=== PATIENT | male | born 1955 | race Caucasian/White ===

== ENCOUNTER 2020-12-08 15:24 | Outpatient (REF) | payer MEDICARE, OTHER, SELFPAY ==
[2020-12-08 17:58] LABS: Glucose Urine UA NEG (NEG); Leukocyte Esterase Urine 1+ (NEG); Nitrite Urine NEG (NEG); Specific Gravity - Urine >= 1.030 (1.005-1.025); Urine Blood 3+ (NEG); Urine Ketones 5 MG/DL (NEG); Urine Protein 2+ MG/DL (NEG-TRACE)
[2020-12-08 18:02] LABS: Appearance Urine HAZY; Color Urine YELLOW
[2020-12-08 18:11] LABS: Bacteria Urine 1+ /LPF
== END 2020-12-08 15:25 | disposition home or self-care (01) ==
LOC: HO.LAB 15:24
PROVIDERS: PCP Internal Medicine; Visit Provider Urology
DX: N39.0 Urinary tract infection, site not specified (principal)
CPT/HCPCS: 81001; 87086

== ENCOUNTER → 2021-01-05 15:36 | Outpatient (BNVA) | payer MEDICARE, OTHER, SELFPAY | PROVIDERS: PCP Internal Medicine; Visit Provider Urology | DX: Z13.89 Encounter for screening for other disorder (principal) | CPT/HCPCS: 99212 ==

== ENCOUNTER → 2021-07-14 15:15 | Outpatient (BNVA) | payer MEDICARE, SELFPAY | PROVIDERS: PCP Internal Medicine; Visit Provider Urology ==

== ENCOUNTER 2022-05-05 13:13 | Emergency (ER) | payer MEDICARE, OTHER, SELFPAY ==
--- NOTE | ~2022-05-05 | XR_ITS ---
EXAMINATION: XR KNEE, RIGHT CLINICAL INFORMATION: Right knee pain. COMPARISON: None TECHNIQUE: Four views of the right knee. FINDINGS: Mild tricompartmental degenerative joint changes are seen. There is no acute fracture or dislocation. Trace suprapatellar joint effusion. The soft tissues are unremarkable. XR/XR knee RT 4V IMPRESSION: Mild tricompartmental degenerative joint changes and trace suprapatellar joint effusion. No acute abnormality.
--- NOTE | ~2022-05-05 | US_ITS ---
EXAMINATION: US VENOUS ULTRASOUND WITH DOPPLER LOWER EXTREMITY, RIGHT CLINICAL INFORMATION: Edema COMPARISON: None TECHNIQUE: Ultrasound of the deep veins is performed from the hip to the calf with compression sonography and color and pulse Doppler assessment. Spectral analysis with color-flow imaging is performed. FINDINGS: There is normal venous compression and respiratory variation and augmented flow. The visualized common femoral vein, superficial femoral vein, profunda femoral vein, popliteal vein, and the trifurcation region shows no evidence of deep venous thrombosis. There is no significant popliteal fossa cyst. If the patient's symptoms persist, followup ultrasound in 5 days 7 days might be of value to exclude proximal propagation from a non-visualized calf vein. US/US venous duplex LE RT IMPRESSION: No DVT demonstrated in the right lower extremity.
[2022-05-05 13:20] VITALS: BP 149/70; PULSE 87; RESP 18; TEMP 36.8; O2SAT 98; BMI 26.6
[2022-05-05 14:04] LABS: MANUAL DIFF FLAG NO
--- NOTE | 2022-05-05 14:07 | ED.GENADULT ---
HPI - General Adult General Chief complaint: General Medical Stated complaint: Possible sepsis Time Seen by Provider: 05/05/22 14:06 Source: patient and old records reviewed History of Present Illness HPI narrative: Patient states for approximately 2 weeks he has had muscle aches and joint pains. No fevers or shaking chills. Patient was sent to [facility] lab this morning, and had laboratory studies done including CRP and sed rate, chemistry and CBC, urinalysis. Laboratory studies were abnormal with an elevated CRP and sed rate, and the patient was called by his primary care doctor told to go to the emergency room to be evaluated. The patient states he has noted his right knee to be somewhat swollen and painful, but denies any redness or warmth. Onset (ago): week(s) (2) Location: upper extremity and lower extremity Radiation: non-radiation Severity: mild Quality: aching and dull Pain Consistency: constant Relieving factors: none Exacerbating factors: none Related Data Previous Rx's Medication Instructions Recorded alfuzosin 10 mg tablet,extended 10 mg PO DAILY 90 days #90 tabs 02/23/21 release 24 hr doxycycline hyclate 100 mg capsule 100 mg PO BID 14 days #28 caps 05/05/22 Allergies Allergy/AdvReac Type Severity Reaction Status Date / Time No Known Allergies Allergy Mild NONE Verified 01/05/21 15:45 Review of Systems Review of Systems: Yes all other systems are reviewed and are negative Constitutional: Constitutional: Denies chills, Denies fever(s) and Denies headache(s) Eyes: Eyes: Denies blurry vision and Denies change in vision ENT: Denies dizziness and Denies headache(s) Cardiovascular: Cardiovascular: Denies chest pain, Denies syncope, Denies rapid heart rate and Denies dyspnea Respiratory: Respiratory: Denies cough, Denies dyspnea and Denies wheezing Gastrointestinal: Gastrointestinal: Denies diarrhea and Denies vomiting Genitourinary: Genitourinary: Denies difficulty urinating and Denies urinary urgency Musculoskeletal: Musculoskeletal: Reports myalgias, Reports arthralgias and Reports joint swelling Neurologic: Denies Abnormal speech present, Denies dizziness, Denies syncope and Denies headache(s) Allergic/Immunologic: Allergic/Immunologic: Denies wheezing [facility] Past Medical History Attestation statement: The following information was validated with the patient. [facility] Narrative: Patient does have a history of BPH and recurrent UTI Medical History (Updated 05/05/22 @ 18:56 by Jg Mcgovern MD) Erectile dysfunction Social History Social History Advance Directives: No Advance Directives Information Provided: Yes Physical Exam ED Vital Signs: Vital Signs - 24 hr 05/05/22 13:20 Temperature 98.3 F Pulse Rate 87 Respiratory Rate 18 Blood Pressure 149/70 H Pulse Oximetry 98 Oxygen Delivery Method Room Air BMI result Body Mass Index 26.6 Vital signs are stable and with mild systolic hypertension Const General: cooperative, healthy appearing and comfortable Nutritional Appearance: average body habitus Orientation/consciousness: patient oriented x3 HENMT Head: Yes normocephalic and Yes atraumatic Ears: hearing grossly normal bilaterally and external ears normal General nose exam: Normal external nose present Face and sinus: Yes normal facial exam Mouth: Normal oral and palatal mucosa present and moist mucous membranes Eyes Sclerae: sclerae normal Corneas: corneas normal Pupils: Equal, round and reactive pupils present EOM: EOMs intact bilaterally Neck Neck: Yes normal visual inspection, Yes full ROM and Yes no meningeal signs Resp Effort & Inspection: normal respiratory effort, no cough and no respiratory distress Auscultation: clear to auscultation bilaterally Cardio Rate: regular rate Rhythm: regular rhythm GI Inspection: No distended and No obesity General: Yes no CVA tenderness Back/Spine/Pelvis Back: no CVA tenderness Cervical Spine: normal cervical lordosis and cervical ROM normal Skin General skin exam: no erythema, no mottling and no pallor Neuro General: patient oriented x3 and no meningeal signs Cranial nerves: Yes CN's II-XII intact bilaterally and Yes Equal, round and reactive pupils present Cognition (Neuro): normal cognition Speech: No Abnormal speech present Gait exam (Neuro): Normal gait present Course Reevaluation(s) Reevaluation #1: Patient resting comfortably. Leg and knee examined at this time which displays swelling of the right lower leg from the knee down to the foot and ankle. There is no tenderness on palpation of the ankle or knee, no ligamentous laxity, and no rash or warmth. Time: 15:50 Procedures Joint Aspiration/Injection Joint Asp./Inject. 1: Time Out Performed: Yes Side of body: right Joint Aspirated: knee Ultrasound Guidance: No Skin Prep: Povidone-Iodine1% Local Anesthetic: lidocaine 1% Needle Size Used: 20G Fluid Obtained: bloody Total fluid obtained (mL): 2 Patient Tolerated Procedure: well Complications: none Medical Decision Making MDM Narrative Medical decision making narrative: 68-year-old male presents to the ED with several weeks of vague muscular complaints and joint pain. Seen by his primary care doctor yesterday and had laboratory studies performed at that time. Additional labs done here tonight show a mild anemia and lymphopenia. The patient reports that his Lyme test yesterday was negative. Repeat Lyme test today is pending although other tick-borne illnesses still need to be excluded. An attempt was made at arthrocentesis of the right knee, only 1 cc of fluid was obtained. This was sent to the laboratory, however I am not optimistic that this will produce any significant results. The patient does have An appointment with his primary care doctor tomorrow. It may be worth starting the patient on doxycycline, as his elevated sed rate, his elevated C-reactive protein, and the multiple arthralgias do suggest some sort of inflammatory process, in [place], very likely to be Lyme, or any other tick-borne illness. Differential Diagnosis Differential Diagnosis: Tick-borne illness, acute arthritic process, myalgias of unclear origin Medical Records Medical records reviewed: Yes I reviewed the patient's medical records. Medical records narrative: Laboratory studies that the patient had this morning were reviewed on the patient's phone. In addition, notes from the patient's primary care visit from yesterday were reviewed. As a result of the negative x-ray and negative ultrasound, the patient will undergo an arthrocentesis here in the emergency department, results of which will be documented when available Lab Data Lab results reviewed: Yes I reviewed the patient's lab results. Lab results narrative: Significant labs include a C-reactive protein of 14.65 and a sed rate of 82. Also notable is a mild anemia and lymphopenia with only 12.6% lymphocytes. The remainder of the patient's laboratory studies are unremarkable. Result diagrams: 05/05/22 13:57 05/05/22 13:56 Labs: Lab Results 05/05/22 05/05/22 05/05/22 Range/Units 13:56 13:56 13:56 WBC (4.8-10.8) X10*3/uL RBC (4.60-5.80) X10*6/uL Hgb (14.0-18.0) g/dl Hct (42.0-52.0) % MCV (80.0-98.0) fL MCH (27.0-33.0) pg MCHC (31.0-36.0) g/dl RDW (11.0-16.0) % Plt Count (160-400) X10*3/uL MPV (9.4-12.4) fL Immature Gran % (Auto) (0.0-0.4) % Neut % (Auto) (45-73) % Lymph % (Auto) (20-40) % [place] % (Auto) (2-11) % Eos % (Auto) (0-4) % Baso % (Auto) (0-2) % Lymph # (Auto) (1.2-4.9) X10*3/uL [place] # (Auto) (0.1-1.2) X10*3/uL Eos # (Auto) (0.0-0.4) X10*3/uL Baso # (Auto) (0.0-0.2) X10*3/uL Abs Immat Gran (auto) (0.00-0.03) X10*3/uL Absolute Neuts (auto) (2.0-8.3) x10*3/uL Absolute Nucleated RBC (0.0-0.012) X10*3/uL Nucleated RBC % (auto) (0.0-0.2) /100WBC ESR (0-15) MM/HR Sodium 142 (135-145) mmol/L Potassium 4.1 (3.3-5.1) mmol/L Chloride 102 (96-108) mmol/L Carbon Dioxide 29 (22-29) mmol/L Anion Gap 15 (12-20) BUN 17 H (9-16) mg/dL Creatinine 0.88 (0.5-1.4) mg/dL Estim Creat Clear Calc 81.4 Estimated GFR > 60 Random Glucose 101 (60-115) mg/dL Lactic Acid 1.1 (0.5-2.0) mmol/L Calcium 9.0 (8.4-10.2) mg/dL Total Bilirubin 0.5 (0.0-1.0) mg/dL Direct Bilirubin 0.3 (0.0-0.5) mg/dL AST 18 (5-37) U/L ALT 18 (0-40) U/L Alkaline Phosphatase 64 (39-117) U/L C-Reactive Protein 14.65 H (< or = 0.50) mg/dL C-React Prot High Sens Cancelled Total Protein 6.9 (6.5-8.0) g/dL Albumin 4.0 (3.5-5.0) g/dL Lipase 11 (8-78) U/L COVID-19 ([facility]) (Negative) COVID-19 Clin Com Cancelled Test 05/05/22 05/05/22 05/05/22 Range/Units 13:57 13:57 13:57 WBC 10.3 (4.8-10.8) X10*3/uL RBC 4.07 L (4.60-5.80) X10*6/uL Hgb 11.9 L (14.0-18.0) g/dl Hct 35.6 L (42.0-52.0) % MCV 87.5 (80.0-98.0) fL MCH 29.2 (27.0-33.0) pg MCHC 33.4 (31.0-36.0) g/dl RDW 12.4 (11.0-16.0) % Plt Count 430 H (160-400) X10*3/uL MPV 9.6 (9.4-12.4) fL Immature Gran % (Auto) 0.5 H (0.0-0.4) % Neut % (Auto) 77.0 H (45-73) % Lymph % (Auto) 12.6 L (20-40) % [place] % (Auto) 8.8 (2-11) % Eos % (Auto) 0.9 (0-4) % Baso % (Auto) 0.2 (0-2) % Lymph # (Auto) 1.3 (1.2-4.9) X10*3/uL [place] # (Auto) 0.9 (0.1-1.2) X10*3/uL Eos # (Auto) 0.1 (0.0-0.4) X10*3/uL Baso # (Auto) 0.0 (0.0-0.2) X10*3/uL Abs Immat Gran (auto) 0.05 H (0.00-0.03) X10*3/uL Absolute Neuts (auto) 7.9 (2.0-8.3) x10*3/uL Absolute Nucleated RBC 0.000 (0.0-0.012) X10*3/uL Nucleated RBC % (auto) 0.0 (0.0-0.2) /100WBC ESR 82 H (0-15) MM/HR Sodium (135-145) mmol/L Potassium (3.3-5.1) mmol/L Chloride (96-108) mmol/L Carbon Dioxide (22-29) mmol/L Anion Gap (12-20) BUN (9-16) mg/dL Creatinine (0.5-1.4) mg/dL Estim Creat Clear Calc Estimated GFR Random Glucose (60-115) mg/dL Lactic Acid (0.5-2.0) mmol/L Calcium (8.4-10.2) mg/dL Total Bilirubin (0.0-1.0) mg/dL Direct Bilirubin (0.0-0.5) mg/dL AST (5-37) U/L ALT (0-40) U/L Alkaline Phosphatase (39-117) U/L C-Reactive Protein (< or = 0.50) mg/dL C-React Prot High Sens Total Protein (6.5-8.0) g/dL Albumin (3.5-5.0) g/dL Lipase (8-78) U/L COVID-19 ([facility]) Negative (Negative) COVID-19 Clin Com See Note Cancelled Test 05/05/22 Range/Units 19:34 WBC (4.8-10.8) X10*3/uL RBC (4.60-5.80) X10*6/uL Hgb (14.0-18.0) g/dl Hct (42.0-52.0) % MCV (80.0-98.0) fL MCH (27.0-33.0) pg MCHC (31.0-36.0) g/dl RDW (11.0-16.0) % Plt Count (160-400) X10*3/uL MPV (9.4-12.4) fL Immature Gran % (Auto) (0.0-0.4) % Neut % (Auto) (45-73) % Lymph % (Auto) (20-40) % [place] % (Auto) (2-11) % Eos % (Auto) (0-4) % Baso % (Auto) (0-2) % Lymph # (Auto) (1.2-4.9) X10*3/uL [place] # (Auto) (0.1-1.2) X10*3/uL Eos # (Auto) (0.0-0.4) X10*3/uL Baso # (Auto) (0.0-0.2) X10*3/uL Abs Immat Gran (auto) (0.00-0.03) X10*3/uL Absolute Neuts (auto) (2.0-8.3) x10*3/uL Absolute Nucleated RBC (0.0-0.012) X10*3/uL Nucleated RBC % (auto) (0.0-0.2) /100WBC ESR (0-15) MM/HR Sodium (135-145) mmol/L Potassium (3.3-5.1) mmol/L Chloride (96-108) mmol/L Carbon Dioxide (22-29) mmol/L Anion Gap (12-20) BUN (9-16) mg/dL Creatinine (0.5-1.4) mg/dL Estim Creat Clear Calc Estimated GFR Random Glucose (60-115) mg/dL Lactic Acid (0.5-2.0) mmol/L Calcium (8.4-10.2) mg/dL Total Bilirubin (0.0-1.0) mg/dL Direct Bilirubin (0.0-0.5) mg/dL AST (5-37) U/L ALT (0-40) U/L Alkaline Phosphatase (39-117) U/L C-Reactive Protein (< or = 0.50) mg/dL C-React Prot High Sens Total Protein (6.5-8.0) g/dL Albumin (3.5-5.0) g/dL Lipase (8-78) U/L COVID-19 ([facility]) (Negative) COVID-19 Clin Com Cancelled Test SEE NOTE Imaging Data Right knee: Radiologist's impression: Findings: Mild tricompartmental degenerative joint changes are seen. There is no acute fracture dislocation. Trace suprapatellar joint effusion. The soft tissues are unremarkable. Venous US: Radiologist's impression: FINDINGS: There is normal venous compression and respiratory variation and augmented flow. The visualized common femoral vein, superficial femoral vein, profunda femoral vein, popliteal vein, and the trifurcation region shows no evidence of deep venous thrombosis. ? There is no significant popliteal fossa cyst Discharge Plan Discharge Clinical Impression: Polyarthralgia, Elevated erythrocyte sedimentation rate, Elevated C-reactive protein Patient Disposition: Home, Self-Care Instructions: Arthralgia (ED) Additional Instructions: It is possible that you have Lyme disease or another tick-borne illness. For that reason, I have decided to start you on doxycycline which would be the treatment for a tick-borne illness. According to the notes from your nurse practitioner, you do have an appointment with her tomorrow. I would strongly suggest that you keep that appointment. Although we have not found the exact cause of your illness, there are several tests which are still pending. Prescriptions: New doxycycline hyclate 100 mg capsule 100 mg PO BID 14 Days Qty: 28 0RF No Action alfuzosin 10 mg tablet extended release 24 hr 10 mg PO DAILY 90 Days Qty: 90 1RF Rx Instructions: Take before bedtime Referrals: Amita Sheth, ANP-BC [Nurse Practitioner] - 1 day
[2022-05-05 14:09] LABS: Basophils Percent Auto 0.2 % (0-2); Eosinophils Absolute Auto 0.1 X10*3/uL (0.0-0.4); Eosinophils Percent Auto 0.9 % (0-4); Hematocrit 35.6 % (42.0-52.0); Hemoglobin 11.9 g/dl (14.0-18.0); Imm Gran Abs Auto 0.05 X10*3/uL (0.00-0.03); Imm Gran Pct Auto 0.5 % (0.0-0.4); Lymphocytes Absolute Auto 1.3 X10*3/uL (1.2-4.9); Lymphocytes Percent Auto 12.6 % (20-40); Mean Corpuscular HGB Conc 33.4 g/dl (31.0-36.0); Mean Corpuscular Hemoglobin 29.2 pg (27.0-33.0); Mean Corpuscular Volume 87.5 fL (80.0-98.0); Mean Platelet Volume 9.6 fL (9.4-12.4); Monocytes Absolute Auto 0.9 X10*3/uL (0.1-1.2); Monocytes Percent Auto 8.8 % (2-11); Neutrophils Absolute Auto 7.9 x10*3/uL (2.0-8.3); Platelet Count 430 X10*3/uL (160-400); Red Blood Count 4.07 X10*6/uL (4.60-5.80); Red Cell Distribution Width 12.4 % (11.0-16.0); White Blood Count 10.3 X10*3/uL (4.8-10.8)
[2022-05-05 14:19] LABS: Lactic Acid 1.1 mmol/L (0.5-2.0)
[2022-05-05 14:21] LABS: COVID-19 Test Negative (Negative)
[2022-05-05 14:23] LABS: Alanine Aminotransferase 18 U/L (0-40); Alkaline Phosphatase 64 U/L (39-117); Anion Gap 15 (12-20); Aspartate Amino Transferase 18 U/L (5-37); Bilirubin Direct 0.3 mg/dL (0.0-0.5); Bilirubin Total 0.5 mg/dL (0.0-1.0); Blood Urea Nitrogen 17 mg/dL (9-16); C Reactive Protein 14.65 mg/dL (< or = 0.50); Carbon Dioxide 29 mmol/L (22-29); Chloride 102 mmol/L (96-108); Creatinine Clr Calc Pharmacy 81.4; Estimated Glomerular Filt Rate > 60; Glucose Random 101 mg/dL (60-115); Lipase 11 U/L (8-78); Potassium 4.1 mmol/L (3.3-5.1); Sodium 142 mmol/L (135-145); Total Protein 6.9 g/dL (6.5-8.0)
[2022-05-05 16:01] LABS: Erythrocyte Sedimentation Rate 82 MM/HR (0-15)
[2022-05-09 21:35] LABS: Lyme Abs Screen <0.90 index
[2022-05-12 04:27] LABS: Babesia IgG <1:64 titer (<1:64); Babesia IgM <1:20 titer (<1:20)
[2022-05-12 04:36] LABS: A. Phagocytophilum Ab IgG <1:64 (<1:64); A. Phagocytophilum Ab IgM <1:20 (<1:20); E. Chaffeensis Ab IgM <1:20 (<1:20); Interpretation PAST INFECTION
== END 2022-05-05 20:41 | disposition home or self-care (01) ==
PROVIDERS: Emergency Provider Emergency Medicine; PCP Internal Medicine
DX: M25.561 Pain in right knee (principal); R60.0 Localized edema; Z20.822 Contact with and (suspected) exposure to COVID-19; Z79.899 Other long term (current) drug therapy
CPT/HCPCS: 20610; 36415; 73564; 80053; 82248; 83605; 83690; 85025; 85652; 86140; 86617; 86618; 86666; 86753; 87040; 87635; 93971; 99282; 99284

== ENCOUNTER 2022-05-24 15:01 | Outpatient (REF) | payer MEDICARE, OTHER, SELFPAY ==
[2022-05-24 15:33] LABS: MANUAL DIFF FLAG NO
[2022-05-24 15:45] LABS: Basophils Percent Auto 0.1 % (0-2); Eosinophils Percent Auto 0.1 % (0-4); Hematocrit 38.9 % (42.0-52.0); Hemoglobin 12.6 g/dl (14.0-18.0); Imm Gran Abs Auto 0.14 X10*3/uL (0.00-0.03); Imm Gran Pct Auto 0.9 % (0.0-0.4); Lymphocytes Absolute Auto 1.8 X10*3/uL (1.2-4.9); Lymphocytes Percent Auto 11.9 % (20-40); Mean Corpuscular HGB Conc 32.4 g/dl (31.0-36.0); Mean Corpuscular Hemoglobin 28.2 pg (27.0-33.0); Mean Platelet Volume 10.2 fL (9.4-12.4); Monocytes Absolute Auto 0.6 X10*3/uL (0.1-1.2); Neutrophils Absolute Auto 12.7 x10*3/uL (2.0-8.3); Platelet Count 369 X10*3/uL (160-400); Red Blood Count 4.47 X10*6/uL (4.60-5.80); Red Cell Distribution Width 13.9 % (11.0-16.0); White Blood Count 15.3 X10*3/uL (4.8-10.8)
[2022-05-24 15:57] LABS: Appearance Urine Clear; Color Urine Yellow; Glucose Urine UA Negative (Negative); Leukocyte Esterase Urine Negative (Negative); Nitrite Urine Negative (Negative); Specific Gravity - Urine 1.025 (1.005-1.025); UMIC TRIGGER UA YES; Urine Blood Trace (Negative); Urine Ketones Negative (Negative); Urine Protein Negative (Neg-Trace)
[2022-05-24 16:26] LABS: Alanine Aminotransferase 19 U/L (0-40); Albumin Level 3.9 g/dL (3.5-5.0); Alkaline Phosphatase 65 U/L (39-117); Anion Gap 17 (12-20); Aspartate Amino Transferase 18 U/L (5-37); Bilirubin Total 0.8 mg/dL (0.0-1.0); Blood Urea Nitrogen 18 mg/dL (9-16); C Reactive Protein 2.02 mg/dL (< or = 0.50); Calcium 9.4 mg/dL (8.4-10.2); Carbon Dioxide 23 mmol/L (22-29); Chloride 103 mmol/L (96-108); Estimated Glomerular Filt Rate > 60; Glucose Random 94 mg/dL (60-115); Potassium 4.4 mmol/L (3.3-5.1); Rheumatoid Factor < 13.0 IU/mL (<15.0); Sodium 139 mmol/L (135-145); Total Protein 6.7 g/dL (6.5-8.0); Uric Acid 4.8 mg/dL (3.4-7.0)
[2022-05-24 16:44] LABS: Erythrocyte Sedimentation Rate 16 MM/HR (0-15)
[2022-05-24 16:59] LABS: Bacteria Urine None Seen (None Seen); Hyaline Casts Urine 0-2 /LPF (0-2); RBC Urine 0-2 /HPF (0-2); Squamous Epithelial Cell Urine 0-2 /HPF (0-2); WBC Urine 0-5 /HPF (0-5)
[2022-05-24 17:19] LABS: Creatinine Urine 114.01 mg/dL; Total Protein Urine Random < 7 mg/dL (<12)
[2022-05-25 07:25] LABS: HBS Num1 3.41 mIU/mL (0-7.99); HBc Num1 0.08 S/CO (0.00-0.79); HBsAGNum1 0.22 S/CO (0.00-0.99); Hepatitis A Antibody IgM 0.23 Index (0-0.79); Hepatitis B Core Antibody Nonreactive (Nonreactive); Hepatitis B Surface Antigen Negative (Negative); ~HepC Num1 0.25 S/CO (0.00-0.79); ~Hepatitis A Antibody IgM Nonreactive (Nonreactive); ~Hepatitis B Surface Antibody NONREACTIVE (Nonreactive); ~Hepatitis C Antibody Nonreactive (Nonreactive)
[2022-05-25 14:31] LABS: Prot Elec - Albumin 3.6 g/dL (3.8-4.8); Prot Elec - Alpha1 0.5 g/dL (0.2-0.3); Prot Elec - Alpha2 1.1 g/dL (0.5-0.9); Prot Elec - Beta 1 0.5 g/dL (0.4-0.6); Prot Elec - Beta 2 0.4 g/dL (0.2-0.5)
[2022-05-25 15:12] LABS: Cyclic Citrullinated Peptide <16 UNITS
[2022-05-26 12:56] LABS: TS Negative Control Passed; TS Panel A 0; TS Panel B 0; TS Positive Control Passed; TSpotTB Negative (Negative)
[2022-05-26 14:41] LABS: IgA 218 mg/dL (70-320); IgG 1010 mg/dL (600-1540); IgM 77 mg/dL (50-300)
== END 2022-05-24 15:02 | disposition home or self-care (01) ==
LOC: HO.LAB 15:01
PROVIDERS: PCP Internal Medicine; Visit Provider Student in an Organized Health Care Education/Training Program
DX: Z11.7 Encounter for testing for latent tuberculosis infection (principal); Z11.59 Encounter for screening for other viral diseases; M31.6 Other giant cell arteritis
CPT/HCPCS: 36415; 80053; 81001; 82784; 84156; 84165; 84550; 85025; 85652; 86140; 86200; 86334; 86431; 86481; 86704; 86706; 86709; 86803; 87340; 99202

== ENCOUNTER → 2022-05-26 11:24 | Outpatient (BNVA) | payer MEDICARE, OTHER, SELFPAY | PROVIDERS: PCP Internal Medicine; Visit Provider Surgery Vascular Surgery | DX: M31.6 Other giant cell arteritis (principal) | CPT/HCPCS: 99202 ==

== ENCOUNTER 2022-05-31 10:34 | Day surgery (SDC) | payer MEDICARE, OTHER, SELFPAY ==
--- NOTE | 2022-05-30 08:53 | HO.ANESPROP2 ---
Documented by User: Tricia Spears NP 05/30/22 08:54 HPI - Anesthesia Eval Consult details Narrative: 66yo M for Right Temporal Artery Biopsy [facility] Active Problems Active Problems: All Active Problems (Updated 05/24/22 @ 17:10 by Swetha Bill MD) Osteoarthritis of right knee (Acute) PMR (polymyalgia rheumatica) (Acute) BPH (benign prostatic hyperplasia) (Acute) Temporal arteritis (Acute) Incomplete emptying of bladder due to benign prostatic hyperplasia (Acute) Erectile dysfunction (Acute) Recurrent UTI (Acute) Past Medical History Medical History Erectile dysfunction Myalgia Family History Family History Mother Thyroid cancer Father Lung cancer Surgical History Surgical History H/O lateral meniscus repair of right knee H/O left knee surgery Hx of appendectomy Social History Social History Household Members: None Alcohol intake: current Alcohol intake frequency: a few times a week Patient Tobacco Use Status: Former Tobacco user Quit Date: 30 yr ago Use of substances other than those prescribed or required for medical reasons: No Are you DNR?: No Advance Directives: No Advance Directives Information Provided: Yes Current occupational status: employed 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 Meds Allergies Allergy/AdvReac Type Severity Reaction Status Date / Time No Known Allergies Allergy Verified 05/31/22 11:23 Home Medications Medication Instructions Recorded Confirmed Last Taken Type prednisone 20 mg tablet 30 mg PO DAILY 05/24/22 05/24/22 Unknown History Exam Exam Date and Time: May 30, 2022 0853 Assessment and Plan Assessment Anesthesia Assessment: Chart Reviewed Documented by User: Emelyn Morrison MD 05/31/22 11:48 PMFSH Past Medical History Medical History Erectile dysfunction Myalgia Family History Family History Mother Thyroid cancer Father Lung cancer Family history of problems with anesthesia: No Surgical History Surgical History H/O lateral meniscus repair of right knee H/O left knee surgery Hx of appendectomy History of Problems with Anesthesia: No Social History Social History Household Members: None Alcohol intake: current Alcohol intake frequency: a few times a week Patient Tobacco Use Status: Former Tobacco user Quit Date: 30 yr ago Use of substances other than those prescribed or required for medical reasons: No Are you DNR?: No Advance Directives: No Advance Directives Information Provided: Yes Current occupational status: employed 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 Meds Allergies Allergy/AdvReac Type Severity Reaction Status Date / Time No Known Allergies Allergy Verified 05/31/22 11:23 Home Medications Medication Instructions Recorded Confirmed Last Taken Type prednisone 20 mg tablet 30 mg PO DAILY 05/24/22 05/24/22 Unknown History Exam Airway Mallampati Class: II (3 implants, 1 cap laterally) TM Dist: >3cm Neck ROM: Full Heart: rrr Lungs: cta Assessment and Plan Assessment Anesthesia Assessment: Anesthesia Plan Discussed and Chart Reviewed Final Anesthetic Review Family History of Problems with Anesthesia: No History of Problems with Anesthesia: No NPO: Yes ASA Class: II Final Preanesthetic Review: No Changes in Pt Med Stat, Meds/Allgs Chart Reviewed and Consent Obtained/Reviewed Patient Risk: Intermediate Procedure Risk: Intermediate Anesthetic Plan Anesthetic Plan: MAC: Disposition: Standard PACU
[2022-05-31 11:01] VITALS: BMI 27.3
[2022-05-31 11:25] VITALS: BP 138/74; PULSE 75; RESP 15; TEMP 36.6; O2SAT 98
[2022-05-31] MEDS: Lactated Ringers 1,000 ML 100 ML IVCONT (11:39)
[2022-05-31 12:55] VITALS: BP 147/88; PULSE 74; RESP 16; TEMP 36.3; O2SAT 98
--- NOTE | 2022-05-31 13:01 | W.PM.OPN ---
Operative Note Operative Note Date of Service: 05/31/22 Narrative: Operative note by [facility] Preoperative diagnosis: Rule out giant cell arteritis Postoperative diagnosis: Same Procedure: Right temporal artery biopsy Surgeon:Ceasar Navas M.D. Obgyn Hospitalist Physician: Jono Anesthesia: Local with sedation Specimens: 1 Drains: None Estimated blood loss: 10 mL Indications: 66-year-old gentleman worked up by Rheumatology noted to have right temporal headaches an elevated ESR and CRP now presents for temporal artery biopsy. The patient has signed the informed consent after reviewing risks, complications, benefits, and alternatives previously discussed with the patient. The patient was given the opportunity to ask any additional questions or voice any concerns. All questions were answered to the patient's satisfaction. Procedure in detail: Patient was brought to the operating room prior to which a time-out was called for patient identification and site verification approximately a 3 cm incision was made just anterior to the ear. Using needle-tip cautery we went down through the skin subcu fascia. Using tenotomy scissors we were easily able to dissect out the temporal artery. We dissected out approximately at 2 cm length of temporal artery. Proximal and distal ends were ligated with 3-0 silk ties. We then cut the vessel and passed off as specimen. Once this was done adequate hemostasis was achieved wound was irrigated thoroughly deep layer was reapproximated using 3-0 poly Sorb and skin was closed using a running subcuticular 4-0 Monocryl. Exofin was used as a sterile dressing. At the end the case sponge instrument counts were correct. Patient tolerated the procedure well. Returned to recovery with stable vitals. We will reach out to the patient once we receive pathology results. This note is constructed using voice recognition software. While every effort has been made to ensure accuracy, finished garment inspector errors may have been included. Thank you for allowing me to participate in the care of your patient. Yours sincerely, Ceasar Navas MD, FACS, R.P.V.I.
[2022-05-31 13:10] VITALS: BP 145/80; PULSE 70; RESP 18; TEMP 36.4; O2SAT 98
[2022-05-31 13:23] VITALS: BP 145/80; PULSE 70; RESP 18; TEMP 36.4; O2SAT 98
== END 2022-05-31 14:03 | disposition home or self-care (01) ==
PROVIDERS: PCP Internal Medicine; Visit Provider Surgery Vascular Surgery
PROC: (CPT 37609; principal; 2022-05-31 12:00)
DX: M31.6 Other giant cell arteritis (principal); R70.0 Elevated erythrocyte sedimentation rate; R79.82 Elevated C-reactive protein (CRP); Z79.52 Long term (current) use of systemic steroids
CPT/HCPCS: 37609; 88305; J0690; J2795

== ENCOUNTER → 2022-07-06 08:26 | Outpatient (BNVA) | payer MEDICARE, OTHER, SELFPAY | PROVIDERS: PCP Internal Medicine; Visit Provider Student in an Organized Health Care Education/Training Program | DX: Z71.85 Encounter for immunization safety counseling (principal); M35.3 Polymyalgia rheumatica | CPT/HCPCS: 36415; 80053; 85025; 85652; 86140; 99212 ==

== ENCOUNTER 2022-07-06 09:33 | Outpatient (REF) | payer MEDICARE, OTHER, SELFPAY ==
[2022-07-06 10:29] LABS: MANUAL DIFF FLAG NO
[2022-07-06 10:38] LABS: Basophils Percent Auto 0.2 % (0-2); Eosinophils Percent Auto 0.3 % (0-4); Hematocrit 39.7 % (42.0-52.0); Imm Gran Abs Auto 0.27 X10*3/uL (0.00-0.03); Imm Gran Pct Auto 2.7 % (0.0-0.4); Lymphocytes Absolute Auto 2.2 X10*3/uL (1.2-4.9); Lymphocytes Percent Auto 21.8 % (20-40); Mean Corpuscular HGB Conc 32.7 g/dl (31.0-36.0); Mean Corpuscular Hemoglobin 28.1 pg (27.0-33.0); Mean Corpuscular Volume 85.9 fL (80.0-98.0); Mean Platelet Volume 10.3 fL (9.4-12.4); Monocytes Absolute Auto 0.8 X10*3/uL (0.1-1.2); Monocytes Percent Auto 7.7 % (2-11); Neutrophils Absolute Auto 6.8 x10*3/uL (2.0-8.3); Neutrophils Percent Auto 67.3 % (45-73); Platelet Count 327 X10*3/uL (160-400); Red Blood Count 4.62 X10*6/uL (4.60-5.80); Red Cell Distribution Width 15.3 % (11.0-16.0); White Blood Count 10.1 X10*3/uL (4.8-10.8)
[2022-07-06 11:22] LABS: Erythrocyte Sedimentation Rate 13 MM/HR (0-15)
[2022-07-06 12:04] LABS: Alanine Aminotransferase 29 U/L (0-40); Albumin Level 3.8 g/dL (3.5-5.0); Alkaline Phosphatase 57 U/L (39-117); Anion Gap 11 (12-20); Aspartate Amino Transferase 16 U/L (5-37); Bilirubin Total 0.5 mg/dL (0.0-1.0); Blood Urea Nitrogen 17 mg/dL (9-16); Calcium 9.2 mg/dL (8.4-10.2); Carbon Dioxide 29 mmol/L (22-29); Chloride 102 mmol/L (96-108); Estimated Glomerular Filt Rate > 60; Glucose Random 96 mg/dL (60-115); Potassium 3.4 mmol/L (3.3-5.1); Sodium 139 mmol/L (135-145); Total Protein 6.1 g/dL (6.5-8.0)
== END 2022-07-06 09:34 | disposition home or self-care (01) ==
LOC: HO.10HDL 09:33
PROVIDERS: Visit Provider Student in an Organized Health Care Education/Training Program
DX: Z13.89 Encounter for screening for other disorder (principal)
CPT/HCPCS: 36415; 80053; 85025; 85652; 86140

== ENCOUNTER 2022-09-09 13:48 | Outpatient (REF) | payer MEDICARE, OTHER, SELFPAY ==
[2022-09-09 15:31] LABS: MANUAL DIFF FLAG NO
[2022-09-09 16:00] LABS: Basophils Percent Auto 0.2 % (0-2); Eosinophils Percent Auto 0.1 % (0-4); Hematocrit 38.4 % (42.0-52.0); Hemoglobin 12.9 g/dl (14.0-18.0); Imm Gran Abs Auto 0.03 X10*3/uL (0.00-0.03); Imm Gran Pct Auto 0.3 % (0.0-0.4); Lymphocytes Absolute Auto 0.9 X10*3/uL (1.2-4.9); Lymphocytes Percent Auto 9.7 % (20-40); Mean Corpuscular HGB Conc 33.6 g/dl (31.0-36.0); Mean Corpuscular Hemoglobin 29.3 pg (27.0-33.0); Mean Corpuscular Volume 87.1 fL (80.0-98.0); Monocytes Absolute Auto 0.4 X10*3/uL (0.1-1.2); Monocytes Percent Auto 4.6 % (2-11); Neutrophils Absolute Auto 7.7 x10*3/uL (2.0-8.3); Neutrophils Percent Auto 85.1 % (45-73); Platelet Count 251 X10*3/uL (160-400); Red Blood Count 4.41 X10*6/uL (4.60-5.80); Red Cell Distribution Width 14.7 % (11.0-16.0); White Blood Count 9.1 X10*3/uL (4.8-10.8)
[2022-09-09 16:48] LABS: Alanine Aminotransferase 15 U/L (0-40); Albumin Level 3.8 g/dL (3.5-5.0); Alkaline Phosphatase 59 U/L (39-117); Anion Gap 10 (12-20); Aspartate Amino Transferase 19 U/L (5-37); Bilirubin Total 0.9 mg/dL (0.0-1.0); Blood Urea Nitrogen 16 mg/dL (9-16); C Reactive Protein 1.02 mg/dL (< or = 0.50); Calcium 8.9 mg/dL (8.4-10.2); Carbon Dioxide 30 mmol/L (22-29); Chloride 104 mmol/L (96-108); Estimated Glomerular Filt Rate > 60; Glucose Random 86 mg/dL (60-115); Potassium 4.4 mmol/L (3.3-5.1); Sodium 140 mmol/L (135-145); Total Protein 6.1 g/dL (6.5-8.0)
[2022-09-09 16:51] LABS: Erythrocyte Sedimentation Rate 9 MM/HR (0-15)
[2022-09-16 13:58] LABS: Myeloperoxidase Antibody <1.0 AI; Proteinase 3 PR3 Antibodies <1.0 AI
== END 2022-09-09 13:49 | disposition home or self-care (01) ==
LOC: HO.LAB 13:48
PROVIDERS: PCP Internal Medicine; Visit Provider Student in an Organized Health Care Education/Training Program
DX: I77.6 Arteritis, unspecified (principal); M35.3 Polymyalgia rheumatica
CPT/HCPCS: 36415; 80053; 85025; 85652; 86021; 86140; 99212

== ENCOUNTER 2022-10-28 09:50 | Outpatient (REF) | payer MEDICARE, OTHER, SELFPAY ==
[2022-10-28 10:03] LABS: MANUAL DIFF FLAG NO
[2022-10-28 11:03] LABS: Basophils Percent Auto 0.2 % (0-2); Eosinophils Percent Auto 0.2 % (0-4); Hematocrit 41.5 % (42.0-52.0); Hemoglobin 13.4 g/dl (14.0-18.0); Imm Gran Abs Auto 0.04 X10*3/uL (0.00-0.03); Imm Gran Pct Auto 0.4 % (0.0-0.4); Lymphocytes Absolute Auto 1.3 X10*3/uL (1.2-4.9); Lymphocytes Percent Auto 12.5 % (20-40); Mean Corpuscular HGB Conc 32.3 g/dl (31.0-36.0); Mean Corpuscular Hemoglobin 28.9 pg (27.0-33.0); Mean Corpuscular Volume 89.6 fL (80.0-98.0); Mean Platelet Volume 10.1 fL (9.4-12.4); Monocytes Absolute Auto 0.6 X10*3/uL (0.1-1.2); Monocytes Percent Auto 5.7 % (2-11); Neutrophils Absolute Auto 8.4 x10*3/uL (2.0-8.3); Platelet Count 324 X10*3/uL (160-400); Red Blood Count 4.63 X10*6/uL (4.60-5.80); Red Cell Distribution Width 13.5 % (11.0-16.0); White Blood Count 10.3 X10*3/uL (4.8-10.8)
[2022-10-28 11:34] LABS: Alanine Aminotransferase 15 U/L (0-40); Albumin Level 4.1 g/dL (3.5-5.0); Alkaline Phosphatase 63 U/L (39-117); Anion Gap 15 (12-20); Aspartate Amino Transferase 16 U/L (5-37); Bilirubin Total 0.9 mg/dL (0.0-1.0); Blood Urea Nitrogen 13 mg/dL (9-16); C Reactive Protein 3.09 mg/dL (< or = 0.50); Calcium 9.4 mg/dL (8.4-10.2); Carbon Dioxide 28 mmol/L (22-29); Chloride 105 mmol/L (96-108); Estimated Glomerular Filt Rate > 60; Glucose Random 108 mg/dL (60-115); Potassium 4.5 mmol/L (3.3-5.1); Sodium 143 mmol/L (135-145); Total Protein 6.5 g/dL (6.5-8.0)
[2022-10-28 11:39] LABS: Erythrocyte Sedimentation Rate 25 MM/HR (0-15)
== END 2022-10-28 09:51 | disposition home or self-care (01) ==
LOC: HO.LAB 09:50
PROVIDERS: PCP Internal Medicine; Visit Provider Student in an Organized Health Care Education/Training Program
DX: M35.3 Polymyalgia rheumatica (principal)
CPT/HCPCS: 36415; 80053; 85025; 85652; 86140

== ENCOUNTER → 2022-11-15 14:49 | Outpatient (BNVA) | payer MEDICARE, OTHER, SELFPAY | PROVIDERS: PCP Internal Medicine; Visit Provider Student in an Organized Health Care Education/Training Program | DX: M35.3 Polymyalgia rheumatica (principal); R07.9 Chest pain, unspecified; Z79.52 Long term (current) use of systemic steroids; Z79.631 Long term (current) use of antimetabolite agent | CPT/HCPCS: 99212 ==

== ENCOUNTER 2023-01-23 07:14 | Outpatient (REF) | payer MEDICARE, OTHER, SELFPAY ==
[2023-01-23 07:31] LABS: MANUAL DIFF FLAG NO
[2023-01-23 08:16] LABS: Basophils Percent Auto 0.3 % (0-2); Eosinophils Absolute Auto 0.1 X10*3/uL (0.0-0.4); Eosinophils Percent Auto 1.1 % (0-4); Hematocrit 39.8 % (42.0-52.0); Hemoglobin 13.1 g/dl (14.0-18.0); Imm Gran Abs Auto 0.03 X10*3/uL (0.00-0.03); Imm Gran Pct Auto 0.4 % (0.0-0.4); Lymphocytes Absolute Auto 1.6 X10*3/uL (1.2-4.9); Lymphocytes Percent Auto 22.5 % (20-40); Mean Corpuscular HGB Conc 32.9 g/dl (31.0-36.0); Mean Corpuscular Hemoglobin 30.1 pg (27.0-33.0); Mean Corpuscular Volume 91.5 fL (80.0-98.0); Mean Platelet Volume 10.3 fL (9.4-12.4); Monocytes Absolute Auto 0.5 X10*3/uL (0.1-1.2); Monocytes Percent Auto 7.4 % (2-11); Neutrophils Percent Auto 68.3 % (45-73); Platelet Count 260 X10*3/uL (160-400); Red Blood Count 4.35 X10*6/uL (4.60-5.80); White Blood Count 7.3 X10*3/uL (4.8-10.8)
[2023-01-23 08:48] LABS: Alanine Aminotransferase 14 U/L (0-40); Alkaline Phosphatase 56 U/L (39-117); Anion Gap 14 (12-20); Aspartate Amino Transferase 16 U/L (5-37); Blood Urea Nitrogen 12 mg/dL (9-16); C Reactive Protein 0.15 mg/dL (< or = 0.50); Calcium 9.3 mg/dL (8.4-10.2); Carbon Dioxide 26 mmol/L (22-29); Chloride 104 mmol/L (96-108); Estimated Glomerular Filt Rate > 60; Glucose Random 95 mg/dL (60-115); Sodium 140 mmol/L (135-145); Total Protein 6.5 g/dL (6.5-8.0)
[2023-01-23 09:05] LABS: Erythrocyte Sedimentation Rate 4 MM/HR (0-15)
== END 2023-01-23 07:15 | disposition home or self-care (01) ==
LOC: HO.LAB 07:14
PROVIDERS: PCP Internal Medicine; Visit Provider Student in an Organized Health Care Education/Training Program
DX: M35.3 Polymyalgia rheumatica (principal)
CPT/HCPCS: 36415; 80053; 85025; 85652; 86140

== ENCOUNTER 2023-02-08 15:04 | Outpatient (AMB) | payer MEDICARE, OTHER, SELFPAY ==
[2023-02-08 15:08] VITALS: BP 128/72; PULSE 72; TEMP 36.9; O2SAT 98; BMI 27.0
--- NOTE | 2023-02-08 15:08 | MHC.OFFVIS ---
Intake Vital Signs 02/08/23 15:08 Height 5 ft 9 in Weight 182 lb 15.739 oz BMI 27.0 BP 128/72 Blood Pressure Location Rt brachial Position Sitting Pulse 72 Pulse Source Pulse Oximeter Temp 98.4 F Temp Source Skin Pulse Oximetry (%) 98 Intake Visit Reasons: PMR Intake Note: Pt seen today for PMR follow up. Currently on prednisone 7mg, denies new or increased pain. Roll Inspector Required: No Accompanied by: Self / Same As Patient Allergies No Known Allergies Allergy (Verified 02/08/23 15:10) Medication List - Last Reconciled 02/08/23 by Swetha Bill MD folic acid 1 mg PO DAILY methotrexate sodium 20 mg (8 x 2.5 mg) PO QWEEK prednisone 2 mg PO DAILY prednisone 5 mg PO DAILY HPI HPI Comments History of Present Illness Details 67-year-old male with PMR returns for follow-up. On methotrexate 20 mg once weekly and folic acid 1 mg daily, currently on 7 mg of prednisone. Has been tapering down by 1 mg every 3 weeks. Doing great overall. Denies any joint pain stiffness or swelling. Recently went on a trip to [place] and was able to hike 6 miles total and felt well. States that he gets loose stool 1 episode the day after he takes methotrexate. He had a stress test ordered by his PCP and was not contacted for results, he assumes it was within normal. He believes his chest pain is MSK in origin worse with certain movements. Initial history: This is a 66-year-old male with insignificant past medical history who presents for evaluation of PMR. The condition started in March of 2022 when patient noticed right knee pain and swelling, worse with activity. About a month later he started having progressively worsening symptoms neck, shoulder, hip, thigh muscle pain and stiffness, generally worse in the morning and improves throughout the day. He went to the ER last month for right knee pain and swelling, that time right knee arthrocentesis was attempted but no fluid could be aspirated. Patient was treated with doxycycline without improvement of his symptoms. Afterwards he was evaluated by PCP. He mentions having some jaw pain with chewing. At that time patient was diagnosed with PMR and started on prednisone 30 mg daily. He has been taking it for about 10 days now. States that his symptoms are about 80% better. He takes the prednisone about 03:00 a.m. so when he wakes up in the morning he is not stiff. He denied having any headaches or changes in his vision. He denies any fever, chills, weight loss. He continues to have right knee pain. Right knee is more stiff in the morning and improves throughout the day. The prednisone did not help his right knee. 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 Review of Systems [facility] [place]ralgias and Denies stiffness Physical Exam Vital Signs: Last Vital Signs Temp 98.4 F 02/08/23 15:08 Pulse 72 02/08/23 15:08 BP 128/72 02/08/23 15:08 Pulse Ox 98 02/08/23 15:08 BMI result Body Mass Index 27.0 Const General: cooperative, healthy appearing, comfortable, no acute distress and well developed Nutritional Appearance: average body habitus and well nourished Orientation/consciousness: patient oriented x3 Limitations: no limitations HEENT Head: Yes normocephalic and Yes atraumatic Mouth: Normal oral and palatal mucosa present and moist mucous membranes Chest Other: No chest wall tenderness to palpation Resp Effort & Inspection: normal respiratory effort and able to speak in complete sentences Cardio Rate: regular rate Rhythm: regular rhythm GI Inspection: No distended Palpation (GI): Soft to palpation and nontender Skin General skin exam: no rashes or lesions noted Neuro General: patient oriented x3 Extrem Other: Negative rotator cuff tendinopathy maneuvers both shoulders Normal range of motion of both shoulders No hip pain or stiffness with range of motion of both hips No active synovitis No knee warmth, swelling or tenderness bilaterally Mild osteoarthritic changes of both hands with no synovitis Normal nailfold capillaroscopy Assessment & Plan Assessment & Plan (1) PMR (polymyalgia rheumatica): Comment: Onset 04/2022 with bilateral shoulder, neck, hip stiffness elevated ESR and CRP and significant response to prednisone 30 mg daily. There was concern for GCA due to right jaw pain. RT temporal artery biopsy was negative on prednisone all through MTX 09/29 effective Code(s): M35.3 - Polymyalgia rheumatica Plan: 67-year-old male with PMR returns for follow-up. He is in remission on prednisone 7 mg daily and methotrexate 20 mg weekly. Gets loose to 1 episode the day after he takes methotrexate. Not particularly bothersome for him. Continue methotrexate 20 mg once weekly plus folic acid 1 mg daily. Reduce prednisone by 1 mg every 4 weeks Labs before next visit in 3 months (2) custodial methotrexate user: Code(s): Z79.631 - custodial (current) use of antimetabolite agent Plan: Safety labs every 3 months. Plan I spent 26 minutes reviewing patient's chart, evaluating patient, ordering diagnostic workup, counseling patient and documenting in the chart Orders: Orders Complete Blood Count Auto Diff 3 Months Z79.631 - custodial (current) use of antimetabolite agent Comprehensive Met. Panel 3 Months Z79.631 - custodial (current) use of antimetabolite agent C Reactive Protein 3 Months Z79.631 - custodial (current) use of antimetabolite agent Erythrocyte Sedimentation Rate 3 Months Z79.631 - custodial (current) use of antimetabolite agent Coding Level of Care Code Est Pt Level 4 (66919) Diagnoses PMR (polymyalgia rheumatica) M35.3 custodial methotrexate user Z79.631
== END 2023-02-08 15:43 | disposition home or self-care (01) ==
PROVIDERS: PCP Internal Medicine; Visit Provider Student in an Organized Health Care Education/Training Program
DX: M35.3 Polymyalgia rheumatica (principal); Z79.631 Long term (current) use of antimetabolite agent
CPT/HCPCS: 99214

== ENCOUNTER → 2023-02-08 15:04 | Outpatient (BNVA) | payer MEDICARE, OTHER, SELFPAY | PROVIDERS: Visit Provider Student in an Organized Health Care Education/Training Program | DX: M35.3 Polymyalgia rheumatica (principal); Z79.631 Long term (current) use of antimetabolite agent | CPT/HCPCS: 99212 ==

== ENCOUNTER 2023-06-26 16:13 | Outpatient (REF) | payer MEDICARE, OTHER, SELFPAY ==
[2023-06-26 16:24] LABS: MANUAL DIFF FLAG NO
[2023-06-26 17:53] LABS: Basophils Percent Auto 0.6 % (0-2); Eosinophils Absolute Auto 0.2 X10*3/uL (0.0-0.4); Eosinophils Percent Auto 2.7 % (0-4); Hematocrit 36.6 % (42.0-52.0); Hemoglobin 12.3 g/dl (14.0-18.0); Imm Gran Abs Auto 0.03 X10*3/uL (0.00-0.03); Imm Gran Pct Auto 0.4 % (0.0-0.4); Lymphocytes Absolute Auto 0.9 X10*3/uL (1.2-4.9); Lymphocytes Percent Auto 12.9 % (20-40); Mean Corpuscular HGB Conc 33.6 g/dl (31.0-36.0); Mean Corpuscular Hemoglobin 31.1 pg (27.0-33.0); Mean Corpuscular Volume 92.4 fL (80.0-98.0); Mean Platelet Volume 11.3 fL (9.4-12.4); Monocytes Absolute Auto 0.9 X10*3/uL (0.1-1.2); Monocytes Percent Auto 12.6 % (2-11); Neutrophils Absolute Auto 4.9 x10*3/uL (2.0-8.3); Neutrophils Percent Auto 70.8 % (45-73); Platelet Count 220 X10*3/uL (160-400); Red Blood Count 3.96 X10*6/uL (4.60-5.80)
[2023-06-26 17:57] LABS: Alanine Aminotransferase 14 U/L (0-40); Alkaline Phosphatase 62 U/L (39-117); Anion Gap 12 (12-20); Aspartate Amino Transferase 21 U/L (5-37); Bilirubin Total 0.6 mg/dL (0.0-1.0); Blood Urea Nitrogen 14 mg/dL (9-16); C Reactive Protein 3.04 mg/dL (< or = 0.50); Carbon Dioxide 27 mmol/L (22-29); Chloride 107 mmol/L (96-108); Estimated Glomerular Filt Rate > 60; Glucose Random 81 mg/dL (60-115); Sodium 142 mmol/L (135-145); Total Protein 6.6 g/dL (6.5-8.0)
[2023-06-26 18:54] LABS: Erythrocyte Sedimentation Rate 18 MM/HR (0-15)
== END 2023-06-26 16:14 | disposition home or self-care (01) ==
LOC: HO.LAB 16:13
PROVIDERS: PCP Internal Medicine; Visit Provider Student in an Organized Health Care Education/Training Program
DX: Z79.899 Other long term (current) drug therapy (principal)
CPT/HCPCS: 36415; 80053; 85025; 85652; 86140

== ENCOUNTER 2023-06-30 13:38 | Outpatient (AMB) | payer MEDICARE, OTHER, SELFPAY ==
--- NOTE | 2023-06-30 13:39 | MHC.OFFVIS ---
Intake Vital Signs 06/30/23 13:40 Height 5 ft 9 in Weight 187 lb 9.814 oz BMI 27.7 BP 120/78 Blood Pressure Location Lt brachial Position Sitting Pulse 71 Pulse Source Pulse Oximeter Temp 97.3 F Temp Source Skin Pulse Oximetry (%) 98 Oxygen Delivery Method Room Air Intake Visit Reasons: PMR Intake Note: Pt last seen 02/08/23 presents today for follow up and test results. c/o reocurent PMR flares. Chalk Tester Required: No Accompanied by: Self / Same As Patient Allergies No Known Allergies Allergy (Verified 06/30/23 13:43) Medication List - Last Reconciled 06/30/23 by Swetha Bill MD folic acid 1 mg PO DAILY methotrexate sodium 20 mg (8 x 2.5 mg) PO QWEEK prednisone 4 mg PO DAILY HPI HPI Comments History of Present Illness Details 67-year-old male with PMR returns for follow-up. On methotrexate 20 mg once weekly and folic acid 1 mg daily, currently on 4 mg of prednisone. Patient was doing great until about 2 weeks ago when he started having recurrent symptoms of PMR including bilateral shoulder stiffness and pain, neck stiffness, bilateral knee and hip stiffness especially especially when getting up after sitting for some time. He also started having cold-like symptoms about 10 days ago. He was quite sick for 1 day, stated that, has been having some upper respiratory tract symptoms and fatigue. He still having some fatigue and having some nasal congestion. He ran out of the methotrexate 3 weeks ago. He missed 1 week. Has been back on it 2 weeks ago. He has been lowering his prednisone by about 1 mg every 3 weeks. He increased his prednisone dose back to 4 mg a week and half ago. He had a stress test ordered by his PCP and was not contacted for results, he assumes it was within normal. He believes his chest pain is MSK in origin worse with certain movements. Initial history: This is a 66-year-old male with insignificant past medical history who presents for evaluation of PMR. The condition started in March of 2022 when patient noticed right knee pain and swelling, worse with activity. About a month later he started having progressively worsening symptoms neck, shoulder, hip, thigh muscle pain and stiffness, generally worse in the morning and improves throughout the day. He went to the ER last month for right knee pain and swelling, that time right knee arthrocentesis was attempted but no fluid could be aspirated. Patient was treated with doxycycline without improvement of his symptoms. Afterwards he was evaluated by PCP. He mentions having some jaw pain with chewing. At that time patient was diagnosed with PMR and started on prednisone 30 mg daily. He has been taking it for about 10 days now. States that his symptoms are about 80% better. He takes the prednisone about 03:00 a.m. so when he wakes up in the morning he is not stiff. He denied having any headaches or changes in his vision. He denies any fever, chills, weight loss. He continues to have right knee pain. Right knee is more stiff in the morning and improves throughout the day. The prednisone did not help his right knee. 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 Systems Const Reports fatigue ENT Reports neck pain Musc Reports arthralgias, Reports limited range of motion, Reports neck pain and Reports stiffness Endo Reports fatigue Physical Exam Vital Signs: Last Vital Signs Temp 97.3 F 06/30/23 13:40 Pulse 71 06/30/23 13:40 BP 120/78 06/30/23 13:40 Pulse Ox 98 06/30/23 13:40 Oxygen Delivery Method Room Air 06/30/23 13:40 BMI result Body Mass Index 27.7 Const General: cooperative, healthy appearing, comfortable, no acute distress and well developed Nutritional Appearance: average body habitus and well nourished Orientation/consciousness: patient oriented x3 Limitations: no limitations HEENT Head: Yes normocephalic and Yes atraumatic Mouth: Normal oral and palatal mucosa present Resp Effort & Inspection: normal respiratory effort and able to speak in complete sentences Cardio Rate: regular rate Rhythm: regular rhythm GI Inspection: No distended Palpation (GI): Soft to palpation and nontender Skin General skin exam: no rashes or lesions noted Neuro General: patient oriented x3 Extrem Other: Minimally limited shoulder abduction bilaterally and some pain with full range of motion, some stiffness No hip pain or stiffness with range of motion of both hips No knee warmth, swelling or tenderness bilaterally Mild osteoarthritic changes of both hands with no synovitis Normal nailfold capillaroscopy Assessment & Plan Assessment & Plan (1) PMR (polymyalgia rheumatica): Comment: Onset 04/2022 with bilateral shoulder, neck, hip stiffness elevated ESR and CRP and significant response to prednisone 30 mg daily. There was concern for GCA due to right jaw pain. RT temporal artery biopsy was negative on prednisone all through MTX 09/29 effective Code(s): M35.3 - Polymyalgia rheumatica Plan: 67-year-old male with PMR returns for follow-up. He is on methotrexate 20 mg weekly and prednisone 4 mg daily. His PMR is flaring with bilateral shoulder and hip pain and stiffness. Increase inflammatory markers. Possible triggers include current upper respiratory tract infection that is resolving, lowering the prednisone dose from 4-3 mg and potentially missing 1 methotrexate dose 3 weeks ago (that seems less likely) Advised patient to hold the methotrexate for 2 weeks, due to resolving respiratory infection. 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 (3) Immunization counseling: Code(s): Z71.85 - Encounter for immunization safety counseling Plan: Patient received the initial COVID vaccination series but did not receive any recent boosters. Advised patient to get the flu vaccine and new COVID booster in the coming few months. Once current flare resolves Plan I spent 26 minutes reviewing patient's chart, evaluating patient, ordering diagnostic workup, counseling patient and documenting in the chart Orders: Orders Complete Blood Count Auto Diff 9 Weeks Z79.631 - [facility] (current) use of antimetabolite agent Creatine Kinase Total 9 Weeks M35.3 - Polymyalgia rheumatica Comprehensive Met. Panel 9 Weeks Z79.631 - [facility] (current) use of antimetabolite agent C Reactive Protein 9 Weeks Z79.631 - [facility] (current) use of antimetabolite agent Erythrocyte Sedimentation Rate 9 Weeks Z79.631 - terminal computer operator (current) use of antimetabolite agent Medications: Changed From prednisone 3 mg (3 x 1 mg) PO DAILY 180 tabs 0RF M35.3 - Polymyalgia rheumatica To prednisone 4 mg PO DAILY M35.3 - Polymyalgia rheumatica Coding Level of Care Code Est Pt Level 4 (38754) Diagnoses PMR (polymyalgia rheumatica) M35.3 terminal computer operator methotrexate user Z79.631 Immunization counseling Z71.43
[2023-06-30 13:40] VITALS: BP 120/78; PULSE 71; TEMP 36.3; O2SAT 98; BMI 27.7
== END 2023-06-30 14:06 | disposition home or self-care (01) ==
PROVIDERS: PCP Internal Medicine; Visit Provider Student in an Organized Health Care Education/Training Program
DX: M35.3 Polymyalgia rheumatica (principal); Z79.631 Long term (current) use of antimetabolite agent; Z71.85 Encounter for immunization safety counseling
CPT/HCPCS: 99214

== ENCOUNTER → 2023-06-30 13:38 | Outpatient (BNVA) | payer MEDICARE, OTHER, SELFPAY | PROVIDERS: PCP Internal Medicine; Visit Provider Student in an Organized Health Care Education/Training Program | DX: Z71.85 Encounter for immunization safety counseling (principal); M35.3 Polymyalgia rheumatica; Z79.631 Long term (current) use of antimetabolite agent | CPT/HCPCS: 99212 ==

== ENCOUNTER 2023-09-04 14:16 | Outpatient (REF) | payer MEDICARE, OTHER, SELFPAY ==
[2023-09-04 14:31] LABS: MANUAL DIFF FLAG NO
[2023-09-04 15:02] LABS: Basophils Percent Auto 0.3 % (0-2); Eosinophils Absolute Auto 0.1 X10*3/uL (0.0-0.4); Eosinophils Percent Auto 0.6 % (0-4); Hematocrit 39.7 % (42.0-52.0); Hemoglobin 13.4 g/dl (14.0-18.0); Imm Gran Abs Auto 0.02 X10*3/uL (0.00-0.03); Imm Gran Pct Auto 0.3 % (0.0-0.4); Lymphocytes Absolute Auto 1.3 X10*3/uL (1.2-4.9); Lymphocytes Percent Auto 15.9 % (20-40); Mean Corpuscular HGB Conc 33.8 g/dl (31.0-36.0); Mean Corpuscular Hemoglobin 29.5 pg (27.0-33.0); Mean Corpuscular Volume 87.4 fL (80.0-98.0); Mean Platelet Volume 10.3 fL (9.4-12.4); Monocytes Absolute Auto 0.3 X10*3/uL (0.1-1.2); Monocytes Percent Auto 4.2 % (2-11); Neutrophils Absolute Auto 6.2 x10*3/uL (2.0-8.3); Neutrophils Percent Auto 78.7 % (45-73); Platelet Count 235 X10*3/uL (160-400); Red Blood Count 4.54 X10*6/uL (4.60-5.80); Red Cell Distribution Width 13.8 % (11.0-16.0); White Blood Count 7.9 X10*3/uL (4.8-10.8)
[2023-09-04 15:31] LABS: Alanine Aminotransferase 16 U/L (0-40); Albumin Level 4.1 g/dL (3.5-5.0); Alkaline Phosphatase 54 U/L (39-117); Anion Gap 11 (12-20); Aspartate Amino Transferase 18 U/L (5-37); Bilirubin Total 1.2 mg/dL (0.0-1.0); Blood Urea Nitrogen 14 mg/dL (9-16); C Reactive Protein 0.37 mg/dL (< or = 0.50); Calcium 9.1 mg/dL (8.4-10.2); Carbon Dioxide 27 mmol/L (22-29); Chloride 106 mmol/L (96-108); Estimated Glomerular Filt Rate > 60; Glucose Random 111 mg/dL (60-115); Potassium 4.1 mmol/L (3.3-5.1); Sodium 140 mmol/L (135-145); Total Protein 6.5 g/dL (6.5-8.0)
[2023-09-04 15:39] LABS: Erythrocyte Sedimentation Rate 7 MM/HR (0-15)
== END 2023-09-04 14:17 | disposition home or self-care (01) ==
LOC: HO.LAB 14:16
PROVIDERS: Visit Provider Student in an Organized Health Care Education/Training Program
DX: M35.3 Polymyalgia rheumatica (principal); Z79.631 Long term (current) use of antimetabolite agent
CPT/HCPCS: 36415; 80053; 82550; 85025; 85652; 86140

== ENCOUNTER 2023-09-06 14:43 | Outpatient (AMB) | payer MEDICARE, OTHER, SELFPAY ==
--- NOTE | 2023-09-06 14:46 | A.OFFVIS_ITS ---
Intake Vital Signs 09/06/23 14:47 Height 5 ft 9 in Weight 189 lb 9.561 oz BMI 28.0 BP 124/62 Blood Pressure Location Rt brachial Position Sitting Pulse 68 Pulse Source Pulse Oximeter Temp 96.9 F Temp Source Skin Pulse Oximetry (%) 98 Oxygen Delivery Method Room Air Intake Visit Reasons: PMR Intake Note: Patient last seen 06/30/23 presents today for follow up and test results. Reports he is not taking MTX, he is currently taking prednisone 7mg. Delivery Driver/Customer Service Required: No Accompanied by: Self / Same As Patient Allergies No Known Allergies Allergy (Verified 09/06/23 14:52) Medication List - Last Reconciled 09/06/23 by Swetha Bill MD folic acid 1 mg PO DAILY prednisone 3 mg (3 x 1 mg) PO DAILY HPI HPI Comments History of Present Illness Details 67-year-old male with PMR returns for fo llow-up. After last visit I had asked patient to hold methotrexate for about 2 weeks for his current respiratory tract infection to resolve. He has not restarted it since last vi sit. He is on prednisone 7 mg daily. He feels well overall with no joint pain, stiffness. He does have bilateral shoulder pain whenever he does any exercises such as lifting or doing pushups. One day he took prednisone 4 mg by mistake and felt significant stiffness. He had a stress test ordered by his PCP and was not contacted for results, he assumes it was within normal. He believes his chest pain is MSK in origin worse with certain movements. Initial history: This is a 66-year-old male with insignificant past medical history who presents for evaluation of PMR. The condition started in March of 2022 when patient noticed right knee pain and swelling, worse with activity. About a month later he started having progressively worsening symptoms neck, shoulder, hip, thigh muscle pain and stiffness, generally worse in the morning and improves throughout the day. He went to the ER last month for right knee pain and swelling, that time right knee arthrocentesis was attempted but no fluid could be aspirated. Patient was treated with doxycycline without improvement of his symptoms. Afterwards he was evaluated by PCP. He mentions having some jaw pain with chewing. At that time patient was diagnosed with PMR and started on prednisone 30 mg daily. He has been taking it for about 10 days now. States that his symptoms are about 80% better. He takes the prednisone about 03:00 a.m. so when he wakes up in the morning he is not stiff. He denied having any headaches or changes in his vision. He denies any fever, chills, weight loss. He continues to have right knee pain. Right knee is more stiff in the morning and improves throughout the day. The prednisone did not help his right knee. 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 [employer] Reports arthralgias and Denies stiffness Physical Exam Vital Signs: Last Vital Signs Temp 96.9 F 09/06/23 14:47 Pulse 68 09/06/23 14:47 BP 124/62 09/06/23 14:47 Pulse Ox 98 09/06/23 14:47 Oxygen Delivery Method Room Air 09/06/23 14:47 BMI result Body Mass Index 28.0 Const General: cooperative, healthy appearing, comfortable, no acute distress and well developed Nutritional Appearance: average body habitus and well nourished Orientation/consciousness: patient oriented x3 Limitations: no limitations HEENT Head: Yes normocephalic and Yes atraumatic Resp Effort & Inspection: normal respiratory effort and able to speak in complete sentences Cardio Rate: regular rate Rhythm: regular rhythm GI Inspection: No distended Palpation (GI): Soft to palpation and nontender Skin General skin exam: no rashes or lesions noted Neuro General: patient oriented x3 Extrem Other: Minimally limited shoulder abduction bilaterally and some pain with full range of motion, some stiffness Negative rotator cuff provocative maneuvers bilaterally Negative Speed's test bilateral No hip pain or stiffness with range of motion of both hips No knee warmth, swelling or tenderness bilaterally Mild osteoarthritic changes of both hands with no synovitis Normal nailfold capillaroscopy Assessment & Plan Assessment & Plan (1) PMR (polymyalgia rheumatica): Comment: Onset 04/2022 with bilateral shoulder, neck, hip stiffness elevated ESR and CRP and significant response to prednisone 30 mg daily. There was concern for GCA due to right jaw pain. RT temporal artery biopsy was negative on prednisone all through MTX 09/29 effective, self DC 06/2023, restarted 08/2023 Code(s): M35.3 - Polymyalgia rheumatica Plan: 67-year-old male with PMR returns for follow-up. Patient did not restart methotrexate as discussed last visit. He is on prednisone 10 mg daily. Doing well overall with no joint pain or stiffness. Advised patient to restart methotrexate 20 mg weekly plus folic acid 1 mg daily Stay on prednisone 7 mg daily for 1 month then taper by 1 mg per month Labs before next visit in 10 weeks (2) group home methotrexate user: Code(s): Z79.631 - intermission coordinator (current) use of antimetabolite agent Plan: Safety labs every 3 months. (3) Bilateral shoulder pain: Code(s): M25.511 - Pain in right shoulder; M25.512 - Pain in left shoulder Qualifiers: Chronicity: chronic Qualified Code(s): M25.511 - Pain in right shoulder; M25.512 - Pain in left shoulder; G89.29 - Other chronic pain Plan: Bilateral Shoulder pain only with exercises such as pushups. Osteoarthritis versus rotator cuff tendinopathy versus bursitis. Will check bilateral shoulder x-rays Plan I spent 26 minutes reviewing patient's chart, evaluating patient, ordering diagnostic workup, counseling patient and documenting in the chart Orders: Orders XR shoulder LT min 2V Today M25.511 - Pain in right shoulder, M25.512 - Pain in left shoulder XR shoulder RT min 2V Today M25.511 - Pain in right shoulder, M25.512 - Pain in left shoulder Medications: New prednisone 5 mg PO DAILY 90 tabs 0RF Refilled methotrexate sodium 20 mg (8 x 2.5 mg) PO QWEEK 96 tabs 0RF M35.3 - Polymyalgia rheumatica folic acid 1 mg PO DAILY 90 tabs 1RF Coding Level of Care Code Est Pt Level 4 (02092) Diagnoses PMR (polymyalgia rheumatica) M35.3 intermission coordinator methotrexate user Z79.631 Chronic pain of both shoulders M25.511; M25.512; G89.29 Chronicity: chronic
[2023-09-06 14:47] VITALS: BP 124/62; PULSE 68; TEMP 36.1; O2SAT 98; BMI 28.0
== END 2023-09-06 15:31 | disposition home or self-care (01) ==
PROVIDERS: PCP Internal Medicine; Visit Provider Student in an Organized Health Care Education/Training Program
DX: M35.3 Polymyalgia rheumatica (principal); Z79.631 Long term (current) use of antimetabolite agent; M25.511 Pain in right shoulder; M25.512 Pain in left shoulder; G89.29 Other chronic pain
CPT/HCPCS: 99214

== ENCOUNTER → 2023-09-06 14:43 | Outpatient (BNVA) | payer MEDICARE, OTHER, SELFPAY | PROVIDERS: PCP Internal Medicine; Visit Provider Student in an Organized Health Care Education/Training Program | DX: M35.3 Polymyalgia rheumatica (principal); M25.511 Pain in right shoulder; M25.512 Pain in left shoulder; G89.29 Other chronic pain; Z79.631 Long term (current) use of antimetabolite agent | CPT/HCPCS: 99212 ==

== ENCOUNTER 2023-12-15 14:52 | Outpatient (REF) | payer MEDICARE, OTHER, SELFPAY ==
--- NOTE | ~2023-12-15 | XR_ITS ---
EXAMINATION: XR SHOULDERS, BILATERAL CLINICAL INFORMATION: Pain in bilateral shoulders. COMPARISON: None available. TECHNIQUE: 4 views of each shoulder. FINDINGS: Right Shoulder: Mild degenerative changes in the acromioclavicular joint with joint space narrowing and hypertrophic change. Advanced degenerative changes in the glenohumeral joint with joint space narrowing and large hypertrophic change along the inferior aspect of the glenoid. Faint soft tissue calcifications adjacent to the greater tuberosity. Left Shoulder: Mild degenerative changes in the acromioclavicular joint with joint space narrowing and hypertrophic change. Advanced degenerative changes in the glenohumeral joint with joint space narrowing and large hypertrophic change along the inferior aspect of the glenoid. XR/XR shoulder LT min 2V IMPRESSION: Degenerative changes in the bilateral shoulders as detailed above.
--- NOTE | ~2023-12-15 | XR_ITS ---
EXAMINATION: XR SHOULDERS, BILATERAL CLINICAL INFORMATION: Pain in bilateral shoulders. COMPARISON: None available. TECHNIQUE: 4 views of each shoulder. FINDINGS: Right Shoulder: Mild degenerative changes in the acromioclavicular joint with joint space narrowing and hypertrophic change. Advanced degenerative changes in the glenohumeral joint with joint space narrowing and large hypertrophic change along the inferior aspect of the glenoid. Faint soft tissue calcifications adjacent to the greater tuberosity. Left Shoulder: Mild degenerative changes in the acromioclavicular joint with joint space narrowing and hypertrophic change. Advanced degenerative changes in the glenohumeral joint with joint space narrowing and large hypertrophic change along the inferior aspect of the glenoid. XR/XR shoulder RT min 2V IMPRESSION: Degenerative changes in the bilateral shoulders as detailed above.
== END 2023-12-15 14:53 | disposition home or self-care (01) ==
LOC: HO.XRAY 14:52
PROVIDERS: PCP Internal Medicine; Visit Provider Student in an Organized Health Care Education/Training Program
DX: M25.511 Pain in right shoulder (principal); M25.512 Pain in left shoulder
CPT/HCPCS: 73030

== ENCOUNTER 2023-12-25 10:32 | Outpatient (REF) | payer MEDICARE, OTHER, SELFPAY ==
[2023-12-25 10:47] LABS: MANUAL DIFF FLAG NO
[2023-12-25 11:34] LABS: Basophils Percent Auto 0.3 % (0-2); Eosinophils Absolute Auto 0.1 X10*3/uL (0.0-0.4); Eosinophils Percent Auto 0.7 % (0-4); Hematocrit 37.3 % (42.0-52.0); Hemoglobin 12.8 g/dl (14.0-18.0); Imm Gran Abs Auto 0.04 X10*3/uL (0.00-0.03); Imm Gran Pct Auto 0.6 % (0.0-0.4); Lymphocytes Percent Auto 13.4 % (20-40); Mean Corpuscular HGB Conc 34.3 g/dl (31.0-36.0); Mean Corpuscular Hemoglobin 30.8 pg (27.0-33.0); Mean Corpuscular Volume 89.7 fL (80.0-98.0); Mean Platelet Volume 10.5 fL (9.4-12.4); Monocytes Absolute Auto 0.4 X10*3/uL (0.1-1.2); Monocytes Percent Auto 6.1 % (2-11); Neutrophils Absolute Auto 5.7 x10*3/uL (2.0-8.3); Neutrophils Percent Auto 78.9 % (45-73); Platelet Count 258 X10*3/uL (160-400); Red Blood Count 4.16 X10*6/uL (4.60-5.80); Red Cell Distribution Width 14.3 % (11.0-16.0); White Blood Count 7.2 X10*3/uL (4.8-10.8)
[2023-12-25 12:11] LABS: Erythrocyte Sedimentation Rate 8 MM/HR (0-15)
[2023-12-25 12:14] LABS: Alanine Aminotransferase 11 U/L (0-40); Alkaline Phosphatase 57 U/L (39-117); Anion Gap 11 (12-20); Aspartate Amino Transferase 20 U/L (5-37); Bilirubin Total 1.2 mg/dL (0.0-1.0); Blood Urea Nitrogen 11 mg/dL (9-16); Calcium 9.3 mg/dL (8.4-10.2); Carbon Dioxide 28 mmol/L (22-29); Chloride 106 mmol/L (96-108); Estimated Glomerular Filt Rate > 60; Glucose Random 89 mg/dL (60-115); Sodium 141 mmol/L (135-145); Total Protein 6.5 g/dL (6.5-8.0)
== END 2023-12-25 10:33 | disposition home or self-care (01) ==
LOC: HO.LAB 10:32
PROVIDERS: Visit Provider Student in an Organized Health Care Education/Training Program
DX: M35.3 Polymyalgia rheumatica (principal); Z79.631 Long term (current) use of antimetabolite agent
CPT/HCPCS: 36415; 80053; 85025; 85652; 86140

== ENCOUNTER 2023-12-27 12:56 | Outpatient (AMB) | payer MEDICARE, OTHER, SELFPAY ==
--- NOTE | 2023-12-27 12:54 | MHC.OFFVIS ---
Vital Signs 12/27/23 12:55 Height 5 ft 9 in Weight 183 lb 13.848 oz BMI 27.1 BP 134/76 Blood Pressure Location Rt brachial Position Sitting Pulse 61 Pulse Source Pulse Oximeter Pulse Oximetry (%) 100 Oxygen Delivery Method Room Air Intake Visit Reasons: PMR/unable to LM Intake Note: Patient last seen 09/06/23 presents today for follow up and test results. 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 He is on methotrexate 20 mg weekly. He has been tapering down his prednisone. He was on prednisone 3 mg daily until October 22. He abruptly discontinued his prednisone. Two weeks later around November 07 he woke up 1 day with stiffness, numbness of his entire left upper extremity including his shoulder, wrists, hand, did not notice any swelling. He is having some mild bilateral shoulder stiffness but nothing extreme. Has not had any joint pain or swelling. Since then he has returned to taking prednisone 3 mg daily with some improvement. He had a stress test ordered by his PCP and was not contacted for results, he assumes it was within normal. He believes his chest pain is MSK in origin worse with certain movements. Initial history: This is a 66-year-old male with insignificant past medical history who presents for evaluation of PMR. The condition started in March of 2022 when patient noticed right knee pain and swelling, worse with activity. About a month later he started having progressively worsening symptoms neck, shoulder, hip, thigh muscle pain and stiffness, generally worse in the morning and improves throughout the day. He went to the ER last month for right knee pain and swelling, that time right knee arthrocentesis was attempted but no fluid could be aspirated. Patient was treated with doxycycline without improvement of his symptoms. Afterwards he was evaluated by PCP. He mentions having some jaw pain with chewing. At that time patient was diagnosed with PMR and started on prednisone 30 mg daily. He has been taking it for about 10 days now. States that his symptoms are about 80% better. He takes the prednisone about 03:00 a.m. so when he wakes up in the morning he is not stiff. He denied having any headaches or changes in his vision. He denies any fever, chills, weight loss. He continues to have right knee pain. Right knee is more stiff in the morning and improves throughout the day. The prednisone did not help his right knee. 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, Denies joint swelling, Reports numbness and Reports stiffness Neuro Reports numbness Physical Exam Vital Signs: Last Vital Signs Pulse 61 12/27/23 12:55 BP 134/76 12/27/23 12:55 Pulse Ox 100 12/27/23 12:55 Oxygen Delivery Method Room Air 12/27/23 12:55 BMI result Body Mass Index 27.1 Const General: cooperative, healthy appearing, comfortable, no acute distress and well developed Nutritional Appearance: average body habitus and well nourished Orientation/consciousness: patient oriented x3 Limitations: no limitations HEENT Head: Yes normocephalic and Yes atraumatic Resp Effort & Inspection: normal respiratory effort and able to speak in complete sentences Cardio Rate: regular rate Rhythm: regular rhythm GI Inspection: No distended Palpation (GI): Soft to palpation and nontender Skin General skin exam: no rashes or lesions noted Neuro General: patient oriented x3 Extrem Other: Minimally limited shoulder abduction bilaterally and some pain with full range of motion, some stiffness Negative rotator cuff provocative maneuvers bilaterally Negative Speed's test bilateral No hip pain or stiffness with range of motion of both hips No knee warmth, swelling or tenderness bilaterally Mildly puffy hands bilaterally Wrist pain with full flexion and extension Negative Tinel's test bilaterally Negative carpal compression test bilaterally Assessment & Plan Assessment & Plan (1) PMR (polymyalgia rheumatica): Comment: Onset 04/2022 with bilateral shoulder, neck, hip stiffness elevated ESR and CRP and significant response to prednisone 30 mg daily. There was concern for GCA due to right jaw pain. RT temporal artery biopsy was negative on prednisone all through MTX 09/29 effective, self DC 06/2023, restarted 08/2023 Code(s): M35.3 - Polymyalgia rheumatica Category: Medical Plan: 67-year-old male with PMR returns for follow-up. On methotrexate 20 mg weekly split dose and prednisone 3 mg daily. When patient abruptly discontinued his prednisone he started having left hand and wrist pain and swelling associated with the tunnel symptoms. 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 Increase methotrexate to 25 mg once weekly split dose Continue folic acid 1 mg daily Continue prednisone 3 mg daily for 2 weeks then stop abruptly Labs before next visit in 3 months (2) intermediate methotrexate user: Code(s): Z79.631 - intermediate (current) use of antimetabolite agent Category: Medical Plan: Safety labs every 3 months. Plan I spent 26 minutes reviewing patient's chart, evaluating patient, ordering diagnostic workup, counseling patient and documenting in the chart Coding Level of Care Code Est Pt Level 4 (01617) Diagnoses PMR (polymyalgia rheumatica) M35.3 buttermaker methotrexate user Z79.631
[2023-12-27 12:55] VITALS: BP 134/76; PULSE 61; O2SAT 100; BMI 27.1
== END 2023-12-27 13:46 | disposition home or self-care (01) ==
PROVIDERS: PCP Internal Medicine; Visit Provider Student in an Organized Health Care Education/Training Program
DX: M35.3 Polymyalgia rheumatica (principal); Z79.631 Long term (current) use of antimetabolite agent
CPT/HCPCS: 99214

== ENCOUNTER → 2023-12-27 12:56 | Outpatient (BNVA) | payer MEDICARE, OTHER, SELFPAY | PROVIDERS: PCP Internal Medicine; Visit Provider Student in an Organized Health Care Education/Training Program | DX: M35.3 Polymyalgia rheumatica (principal); Z79.631 Long term (current) use of antimetabolite agent | CPT/HCPCS: 99212 ==

== ENCOUNTER 2024-03-26 14:00 | Outpatient (AMB) | payer MEDICARE, OTHER, SELFPAY ==
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
[2024-03-26 14:19] VITALS: BP 120/80; PULSE 76; O2SAT 98; BMI 26.9
== END 2024-03-26 15:01 | disposition home or self-care (01) ==
PROVIDERS: PCP Internal Medicine; Visit Provider Student in an Organized Health Care Education/Training Program
DX: M35.3 Polymyalgia rheumatica (principal); Z79.631 Long term (current) use of antimetabolite agent
CPT/HCPCS: 99214

== ENCOUNTER → 2024-03-26 14:00 | Outpatient (BNVA) | payer MEDICARE, OTHER, SELFPAY | PROVIDERS: PCP Internal Medicine; Visit Provider Student in an Organized Health Care Education/Training Program | DX: M35.3 Polymyalgia rheumatica (principal); Z96.642 Presence of left artificial hip joint; Z79.631 Long term (current) use of antimetabolite agent | CPT/HCPCS: 99212 ==

== ENCOUNTER 2024-04-02 10:00 | Outpatient (RCR) | payer MEDICARE, OTHER, SELFPAY | END 2024-05-10 13:14 | disposition home or self-care (01) | LOC: HO.PT 10:00 | PROVIDERS: PCP Internal Medicine; Visit Provider Internal Medicine | DX: S72.002D Fracture of unspecified part of neck of left femur, subsequent encounter for closed fracture with routine healing (principal) | CPT/HCPCS: 97110; 97112; 97162; 97530; 97535 ==

== ENCOUNTER 2024-06-24 16:00 | Outpatient (REF) | payer MEDICARE, OTHER, SELFPAY ==
[2024-06-24 16:11] LABS: MANUAL DIFF FLAG NO
[2024-06-24 16:48] LABS: Basophils Percent Auto 0.4 % (0-2); Eosinophils Absolute Auto 0.2 X10*3/uL (0.0-0.4); Eosinophils Percent Auto 2.6 % (0-4); Hematocrit 38.3 % (42.0-52.0); Hemoglobin 12.7 g/dl (14.0-18.0); Imm Gran Abs Auto 0.02 X10*3/uL (0.00-0.03); Imm Gran Pct Auto 0.3 % (0.0-0.4); Lymphocytes Absolute Auto 1.3 X10*3/uL (1.2-4.9); Lymphocytes Percent Auto 18.9 % (20-40); Mean Corpuscular HGB Conc 33.2 g/dl (31.0-36.0); Mean Corpuscular Hemoglobin 29.1 pg (27.0-33.0); Mean Corpuscular Volume 87.6 fL (80.0-98.0); Mean Platelet Volume 10.8 fL (9.4-12.4); Monocytes Absolute Auto 0.5 X10*3/uL (0.1-1.2); Monocytes Percent Auto 7.9 % (2-11); Neutrophils Absolute Auto 4.8 x10*3/uL (2.0-8.3); Neutrophils Percent Auto 69.9 % (45-73); Platelet Count 259 X10*3/uL (160-400); Red Blood Count 4.37 X10*6/uL (4.60-5.80); Red Cell Distribution Width 16.9 % (11.0-16.0); White Blood Count 6.8 X10*3/uL (4.8-10.8)
[2024-06-24 17:16] LABS: Alanine Aminotransferase 18 U/L (0-40); Albumin Level 4.2 g/dL (3.5-5.0); Alkaline Phosphatase 70 U/L (39-117); Anion Gap 8 (12-20); Aspartate Amino Transferase 29 U/L (5-37); Bilirubin Total 0.9 mg/dL (0.0-1.0); Blood Urea Nitrogen 11 mg/dL (9-16); C Reactive Protein 0.31 mg/dL (< or = 0.50); Calcium 8.9 mg/dL (8.4-10.2); Carbon Dioxide 31 mmol/L (22-29); Chloride 105 mmol/L (96-108); Estimated Glomerular Filt Rate > 60; Glucose Random 87 mg/dL (60-115); Potassium 3.8 mmol/L (3.3-5.1); Sodium 140 mmol/L (135-145); Total Protein 6.8 g/dL (6.5-8.0)
[2024-06-24 17:35] LABS: Erythrocyte Sedimentation Rate 7 MM/HR (0-15)
== END 2024-06-24 16:01 | disposition home or self-care (01) ==
LOC: HO.LAB 16:00
PROVIDERS: PCP Internal Medicine; Visit Provider Student in an Organized Health Care Education/Training Program
DX: M35.3 Polymyalgia rheumatica (principal); Z79.631 Long term (current) use of antimetabolite agent
CPT/HCPCS: 36415; 80053; 85025; 85652; 86140